=== PATIENT | male | born 1995 | race African-American/Black ===

== ENCOUNTER 2018-09-19 02:23 | Emergency (ER) | payer SELFPAY ==
[~2018-09-19] VITALS: Ht 172.7 cm; Wt 72.7 kg
[2018-09-19 03:25] VITALS: BP 128/75
[2018-09-19] MEDS ORDERED: HYDROCODONE/ACETAMINOPHEN 5-325 MG TABLET PO ONE (03:45)
[2018-09-19] MEDS ORDERED: KETOROLAC TROMETHAMINE 60 MG/2 ML VIAL IM ONE (03:45)
[2018-09-19] MEDS ORDERED: PENICILLIN V POTASSIUM 500 MG TABLET PO ONE (03:45)
== END 2018-09-19 03:58 | disposition home or self-care (01) ==
LOC: EMS 02:25
DX: S09.93XA Unspecified injury of face, initial encounter (principal); K04.7 Periapical abscess without sinus; J45.909 Unspecified asthma, uncomplicated; F12.90 Cannabis use, unspecified, uncomplicated; X58.XXXA Exposure to other specified factors, initial encounter; Y93.89 Activity, other specified; Y92.89 Other specified places as the place of occurrence of the external cause; Y99.8 Other external cause status
CPT/HCPCS: 96372; 99283; J1885